=== PATIENT | female | born 1990 | race Caucasian/White ===

== ENCOUNTER 2016-07-08 14:19 | Outpatient (CLI) | payer OTHER ==
[~2016-07-08 14:19] MED LIST: AMBIEN5 MG PO; ANAPROX DS550 M1 PO; ANTIVERT25 MG PO; ATHENOL325 MG PO; COUGH RELI15 MG/5 ML PO; FLEXERIL10 MG PO; IMODIUM MS REL1 EACH PO; KEFLEX500 MG PO; MACROBID100 MG PO; METRONIDAZOLE500 MG PO; MUCINEX D ER T1 EACH PO; NAPROSYN500 MG PO; NIFEDIPINE10 MG PO; PEPCID40 MG PO; PERCOCET 5/31 TABLET PO; PRENATAL PLUS PO; PRENATAL TABLE1 EAC3 PO; PROMETHAZINE HC25 M1 PO; ROBITUSSIN100 MG/5 M PO; SERTRALINE HCL25 MG PO; SPRINTEC1 EACH PO; ZANTAC150 MG PO; ZANTAC300 MG PO; ZOFRAN ODT4 MG PO; ZOFRAN4 MG PO
[2016-07-08 14:37] VITALS: BP 120/59
== END 2016-07-08 15:43 | disposition home or self-care (01) ==
LOC: LDRP-OP 14:19 → 2WEST 14:20 → LDRP-OP 08-18 19:45
DX: O47.1 False labor at or after 37 completed weeks of gestation (principal); O99.89 Other specified diseases and conditions complicating pregnancy, childbirth and the puerperium; Z3A.38 38 weeks gestation of pregnancy
CPT/HCPCS: 59025; G0378

== ENCOUNTER 2016-07-11 07:12 | Inpatient (IN) | payer OTHER ==
[2016-07-11] VITALS (23 sets, daily range): BP systolic 110–168; BP diastolic 51–85
[~2016-07-11] VITALS: Ht 175.3 cm; Wt 114.3 kg
[2016-07-11 09:23] LABS: EOSINOPHIL (%) 0.5 % (0-5); IMMATURE GRANULOCYTE (%) 0.4 % (0.0-0.7); IMMATURE GRANULOCYTE COUNT 0.3 K/uL; LYMPHOCYTE COUNT 1.4 K/uL (1.0-2.8); MCH 28.5 PG (29.0-34.0); MCHC 35.6 G/DL (30.0-36.0); MEAN PLAT.VOLUME 11.4 uM^3 (9.5-12.4); MONOCYTE (%) 7.1 % (3-12); MONOCYTE COUNT 0.6 K/uL (0-0.8); NEUTROPHIL (%) 74.6 % (45-76); NEUTROPHIL COUNT 6.1 K/uL (1.8-6.4); PLATELET COUNT 165 K/uL (156-360); RBC DIS.WIDTH-CV 13.9 % (11.8-14.6); RBC DIS.WIDTH-SD 38.8 % (39-53); RED BLOOD COUNT 4.25 M/uL (3.80-5.20); WHITE BLOOD COUNT 8.2 K/uL (4.1-10.2)
[2016-07-12 05:47] LABS: EOSINOPHIL (%) 0.5 % (0-5); HEMATOCRIT 35.1 % (36.0-46.0); IMMATURE GRANULOCYTE (%) 0.6 % (0.0-0.7); IMMATURE GRANULOCYTE COUNT 0.1 K/uL; LYMPHOCYTE COUNT 1.9 K/uL (1.0-2.8); MCH 27.9 PG (29.0-34.0); MCHC 33.6 G/DL (30.0-36.0); MEAN PLAT.VOLUME 11.9 uM^3 (9.5-12.4); MONOCYTE (%) 7.1 % (3-12); MONOCYTE COUNT 0.6 K/uL (0-0.8); NEUTROPHIL (%) 67.4 % (45-76); NEUTROPHIL COUNT 5.3 K/uL (1.8-6.4); PLATELET COUNT 170 K/uL (156-360); RBC DIS.WIDTH-SD 42.1 % (39-53); RED BLOOD COUNT 4.23 M/uL (3.80-5.20); WHITE BLOOD COUNT 7.9 K/uL (4.1-10.2)
[2016-07-12 08:24] VITALS: BP 129/59
[2016-07-12 16:02] VITALS: BP 128/58
[2016-07-12 22:41] VITALS: BP 120/59
[2016-07-13 07:21] VITALS: BP 129/75
== END 2016-07-13 10:20 | disposition home or self-care (01) | DRG 775 ==
LOC: LDRP-OP 07:12 → 2WEST 07:13 → LDRP-OP 11:41 → 2WEST 17:25 → LDRP-OP 08-18 16:14
PROVIDERS: Advanced Practice Midwife
PROC: 10E0XZZ Delivery of Products of Conception, External Approach (ICD-10-PCS; principal; 2016-07-11)
PROC: 00HU33Z Insertion of Infusion Device into Spinal Canal, Percutaneous Approach (ICD-10-PCS; principal; 2016-07-11)
PROC: 3E033VJ Introduction of Other Hormone into Peripheral Vein, Percutaneous Approach (ICD-10-PCS; principal; 2016-07-11)
PROC: 10907ZC Drainage of Amniotic Fluid, Therapeutic from Products of Conception, Via Natural or Artificial Opening (ICD-10-PCS; principal; 2016-07-11)
PROC: 3E0S3CZ (ICD-10-PCS; principal; 2016-07-11)
DX: O99.214 Obesity complicating childbirth (principal); Z3A.39 39 weeks gestation of pregnancy; Z37.0 Single live birth; F31.9 Bipolar disorder, unspecified; F90.1 Attention-deficit hyperactivity disorder, predominantly hyperactive type; O99.344 Other mental disorders complicating childbirth; E66.9 Obesity, unspecified; Z68.38 Body mass index [BMI] 38.0-38.9, adult; Z87.891 Personal history of nicotine dependence
CPT/HCPCS: 59025; 85025; 87480; 87510; 87660; C1755; G0378; J1200; J2795; J3010; J7120

== ENCOUNTER 2016-09-18 15:31 | Emergency (ER) | payer OTHER ==
[~2016-09-18] VITALS: Ht 165.1 cm; Wt 108.5 kg
[2016-09-18 16:48] LABS: HEMATOCRIT 39.5 % (36.0-46.0); MCH 27.5 PG (29.0-34.0); MCHC 33.2 G/DL (30.0-36.0); MEAN PLAT.VOLUME 9.9 uM^3 (9.5-12.4); PLATELET COUNT 251 K/uL (156-360); RBC DIS.WIDTH-CV 13.2 % (11.8-14.6); RBC DIS.WIDTH-SD 39.7 % (39-53); RED BLOOD COUNT 4.76 M/uL (3.80-5.20); WHITE BLOOD COUNT 7.1 K/uL (4.1-10.2)
[2016-09-18 17:01] LABS: CHLORIDE 109 mEq/L (99-109); POTASSIUM 3.7 mEq/L (3.7-5.4); SODIUM 142 mEq/L (136-147)
[2016-09-18 17:03] LABS: GLUCOSE 86 mg/dL (70-99)
[2016-09-18 17:05] LABS: ANION GAP 8 MEQ/L (2-14); TOTAL BILIRUBIN 0.3 mg/dL (0.0-1.0)
[2016-09-18 17:07] LABS: ALKALINE PHOSPHATASE 60 IU/L (3-129); GFR ESTIMATE (CALCULATED) > 59 mL/min/
[2016-09-18 17:08] LABS: UREA NITROGEN (BUN) 13 mg/dL (9-23)
[2016-09-18 17:20] LABS: QUANTITATIVE HCG < 4.0 MIU/ML
[2016-09-18 18:57] LABS: ADD MIUA? YES; BILIRUBIN NEGATIVE; BLOOD NEGATIVE; COLOR YELLOW ((YELLOW)); GLUCOSE (STRIP) NEGATIVE; KETONES NEGATIVE; LEUKOCYTES SMALL; NITRITE NEGATIVE; PROTEIN (STRIP) 30; SPECIFIC GRAVITY 1.021 (1.000-1.030); UROBILINOGEN 0.2 MG/DL (0.2-1.0)
[2016-09-18 19:14] LABS: BACTERIA NONE SEEN /HPF; EPITHELIAL CELLS 2+ /HPF; MUCUS TRACE /LPF; RED BLOOD CELLS NONE SEEN /HPF (0-5); UCUL ADDED? NO; WHITE BLOOD CELLS NONE SEEN /HPF (0-5)
[2016-09-18] MEDS ORDERED: BENTYL10 MG PO (19:49)
[2016-09-18 19:54] VITALS: BP 156/72
== END 2016-09-18 19:56 | disposition home or self-care (01) ==
LOC: EME 15:31
DX: R10.9 Unspecified abdominal pain (principal); Z87.891 Personal history of nicotine dependence
CPT/HCPCS: 80053; 81003; 84702; 85027; 99281; 99284

== ENCOUNTER 2016-10-12 11:19 | Emergency (ER) | payer OTHER ==
[~2016-10-12] VITALS: Ht 170.2 cm; Wt 109.0 kg
[~2016-10-12 11:19] MED LIST changes: +BENTYL10 MG PO
[2016-10-12 14:12] VITALS: BP 117/71
== END 2016-10-12 14:12 | disposition home or self-care (01) ==
LOC: EME 11:19
DX: Z30.09 Encounter for other general counseling and advice on contraception (principal)
CPT/HCPCS: 99281; 99283

== ENCOUNTER 2016-10-29 14:00 | Emergency (ER) | payer OTHER ==
[~2016-10-29] VITALS: Ht 167.6 cm; Wt 110.1 kg
[2016-10-29 14:24] LABS: HEMATOCRIT 39.3 % (36.0-46.0); MCH 28.2 PG (29.0-34.0); MCHC 34.4 G/DL (30.0-36.0); PLATELET COUNT 203 K/uL (156-360); RBC DIS.WIDTH-CV 12.5 % (11.8-14.6); RBC DIS.WIDTH-SD 37.4 % (39-53); RED BLOOD COUNT 4.79 M/uL (3.80-5.20); WHITE BLOOD COUNT 7.6 K/uL (4.1-10.2)
[2016-10-29 14:37] LABS: CHLORIDE 112 mEq/L (99-109); POTASSIUM 3.8 mEq/L (3.7-5.4); SODIUM 139 mEq/L (136-147)
[2016-10-29 14:39] LABS: GLUCOSE 86 mg/dL (70-99)
[2016-10-29 14:40] LABS: ANION GAP 9 MEQ/L (2-14)
[2016-10-29 14:43] LABS: GFR ESTIMATE (CALCULATED) > 59 mL/min/
[2016-10-29 14:44] LABS: UREA NITROGEN (BUN) 11 mg/dL (9-23)
[2016-10-29 14:52] LABS: QUANTITATIVE HCG 237.7 MIU/ML
[2016-10-29 15:37] LABS: COLOR YELLOW ((YELLOW)); LEUKOCYTES NEGATIVE; NITRITE NEGATIVE
[2016-10-29 15:38] LABS: ADD MIUA? YES; BILIRUBIN NEGATIVE; BLOOD TRACE; GLUCOSE (STRIP) NEGATIVE; KETONES NEGATIVE; PROTEIN (STRIP) NEGATIVE; UROBILINOGEN 0.2 MG/DL (0.2-1.0)
[2016-10-29 16:20] LABS: BACTERIA NONE SEEN /HPF; EPITHELIAL CELLS RARE /HPF; MUCUS NONE SEEN /LPF; RED BLOOD CELLS 0-5 /HPF (0-5); UCUL ADDED? NO; WHITE BLOOD CELLS 0-5 /HPF (0-5)
[2016-10-29 17:09] VITALS: BP 125/65
== END 2016-10-29 17:10 | disposition home or self-care (01) ==
LOC: EME 14:00
PROVIDERS: Nurse Practitioner Family
DX: Z32.01 Encounter for pregnancy test, result positive (principal); R10.30 Lower abdominal pain, unspecified
CPT/HCPCS: 76801; 80048; 81003; 84702; 85027; 99281; 99284

== ENCOUNTER 2016-11-24 10:21 | Emergency (ER) | payer OTHER ==
[~2016-11-24] VITALS: Ht 170.2 cm; Wt 114.6 kg
[2016-11-24] MEDS ORDERED: ZYRTEC10 M2 PO (12:13)
[2016-11-24] MEDS ORDERED: AMOXICILLIN500 M1 PO (12:13)
[2016-11-24 12:20] VITALS: BP 121/58
== END 2016-11-24 12:21 | disposition home or self-care (01) ==
LOC: EME 10:21
PROC: 09C1XZZ Extirpation of Matter from Left External Ear, External Approach (ICD-10-PCS; principal; 2016-11-24)
DX: H66.92 Otitis media, unspecified, left ear (principal); J30.2 Other seasonal allergic rhinitis; H61.22 Impacted cerumen, left ear; Z33.1 Pregnant state, incidental; Z3A.08 8 weeks gestation of pregnancy; Z87.891 Personal history of nicotine dependence
CPT/HCPCS: 99281; 99284

== ENCOUNTER 2016-12-09 12:30 | Emergency (ER) | payer OTHER ==
[~2016-12-09] VITALS: Ht 170.2 cm; Wt 113.9 kg
[~2016-12-09 12:30] MED LIST changes: +AMOXICILLIN500 M1 PO; +ZYRTEC10 M2 PO
[2016-12-09 13:09] LABS: ADD MIUA? YES; BILIRUBIN NEGATIVE; BLOOD NEGATIVE; COLOR YELLOW ((YELLOW)); GLUCOSE (STRIP) NEGATIVE; KETONES NEGATIVE; LEUKOCYTES TRACE; NITRITE NEGATIVE; PROTEIN (STRIP) NEGATIVE; SPECIFIC GRAVITY 1.016 (1.000-1.030); UROBILINOGEN 0.2 MG/DL (0.2-1.0)
[2016-12-09 13:12] LABS: BACTERIA NONE SEEN /HPF; EPITHELIAL CELLS 2+ /HPF; MUCUS TRACE /LPF; RED BLOOD CELLS 0-5 /HPF (0-5); UCUL ADDED? NO; WHITE BLOOD CELLS 0-5 /HPF (0-5)
[2016-12-09 13:32] LABS: MCH 28.3 PG (29.0-34.0); MCHC 34.7 G/DL (30.0-36.0); MCV 81.6 FL (83-99); MEAN PLAT.VOLUME 10.3 uM^3 (9.5-12.4); PLATELET COUNT 139 K/uL (156-360); RBC DIS.WIDTH-CV 12.6 % (11.8-14.6); RBC DIS.WIDTH-SD 37.5 % (39-53); RED BLOOD COUNT 4.41 M/uL (3.80-5.20); WHITE BLOOD COUNT 5.7 K/uL (4.1-10.2)
[2016-12-09 15:32] VITALS: BP 132/73
== END 2016-12-09 15:35 | disposition home or self-care (01) ==
LOC: EME 12:30
DX: O26.891 Other specified pregnancy related conditions, first trimester (principal); R10.9 Unspecified abdominal pain; Z3A.10 10 weeks gestation of pregnancy; W01.0XXA Fall on same level from slipping, tripping and stumbling without subsequent striking against object, initial encounter; F90.9 Attention-deficit hyperactivity disorder, unspecified type; Z87.891 Personal history of nicotine dependence
CPT/HCPCS: 76815; 81003; 84702; 85027; 99281; 99283

== ENCOUNTER 2017-01-22 20:14 | Emergency (ER) | payer OTHER ==
[~2017-01-22] VITALS: Ht 167.6 cm; Wt 112.3 kg
[2017-01-22] MEDS ORDERED: PHENERGAN1.25 MG/ML PO (21:40)
[2017-01-22 22:37] VITALS: BP 118/63
== END 2017-01-22 22:37 | disposition home or self-care (01) ==
LOC: EME 20:14
DX: O99.512 Diseases of the respiratory system complicating pregnancy, second trimester (principal); J06.9 Acute upper respiratory infection, unspecified; O99.342 Other mental disorders complicating pregnancy, second trimester; F90.9 Attention-deficit hyperactivity disorder, unspecified type; Z3A.16 16 weeks gestation of pregnancy; Z87.891 Personal history of nicotine dependence
CPT/HCPCS: 87651 90; 99281; 99284

== ENCOUNTER 2017-01-24 16:27 | Emergency (ER) | payer OTHER ==
[~2017-01-24] VITALS: Ht 170.2 cm; Wt 113.0 kg
[~2017-01-24 16:27] MED LIST changes: +PHENERGAN1.25 MG/ML PO
[2017-01-24 17:34] LABS: HEMATOCRIT 34.7 % (36.0-46.0); MCHC 34.3 G/DL (30.0-36.0); MCV 84.4 FL (83-99); PLATELET COUNT 151 K/uL (156-360); RBC DIS.WIDTH-CV 13.7 % (11.8-14.6); RBC DIS.WIDTH-SD 42.2 % (39-53); RED BLOOD COUNT 4.11 M/uL (3.80-5.20)
[2017-01-24 17:44] LABS: CHLORIDE 108 mEq/L (99-109); POTASSIUM 3.6 mEq/L (3.7-5.4); SODIUM 137 mEq/L (136-147)
[2017-01-24 17:46] LABS: GLUCOSE 77 mg/dL (70-99)
[2017-01-24 17:47] LABS: ANION GAP 10 MEQ/L (2-14)
[2017-01-24 17:48] LABS: TOTAL BILIRUBIN 0.4 mg/dL (0.0-1.0)
[2017-01-24 17:50] LABS: ALKALINE PHOSPHATASE 48 IU/L (3-129); GFR ESTIMATE (CALCULATED) > 59 mL/min/
[2017-01-24 17:51] LABS: UREA NITROGEN (BUN) 6 mg/dL (9-23)
[2017-01-24 18:11] LABS: ADD MIUA? YES; BILIRUBIN NEGATIVE; BLOOD NEGATIVE; COLOR YELLOW ((YELLOW)); GLUCOSE (STRIP) NEGATIVE; KETONES 20; LEUKOCYTES NEGATIVE; NITRITE NEGATIVE; PROTEIN (STRIP) 30; SPECIFIC GRAVITY 1.019 (1.000-1.030); UROBILINOGEN 0.2 MG/DL (0.2-1.0)
[2017-01-24 18:17] LABS: D-DIMER ELISA < 150.00 ng/mLDDU (<230)
[2017-01-24 18:25] LABS: BACTERIA RARE /HPF; CALCIUM OXALATE CRYSTALS 2+ /HPF; EPITHELIAL CELLS 1+ /HPF; MUCUS 4+ /LPF; RED BLOOD CELLS 0-5 /HPF (0-5); UCUL ADDED? NO; WHITE BLOOD CELLS 0-5 /HPF (0-5)
[2017-01-24 18:25] LABS: TROP-I INTERPRETATION NEGATIVE; TROPONIN-I < 0.01 ng/mL (0.0-0.30)
[2017-01-24 18:32] LABS: QUANTITATIVE HCG 14347.6 MIU/ML
[2017-01-24 21:31] VITALS: BP 130/58
[2017-01-24] MEDS ORDERED: AUGMENTIN875 MG PO (21:38)
== END 2017-01-24 21:57 | disposition home or self-care (01) ==
LOC: EME 16:27
PROVIDERS: Physician Assistant
DX: O26.892 Other specified pregnancy related conditions, second trimester (principal); R55 Syncope and collapse; O99.89 Other specified diseases and conditions complicating pregnancy, childbirth and the puerperium; H73.893 Other specified disorders of tympanic membrane, bilateral; Z3A.16 16 weeks gestation of pregnancy; Z87.891 Personal history of nicotine dependence
CPT/HCPCS: 71020; 80053; 81003; 84484; 84702; 85027; 85379; 93005; 93970; 99281; 99284

== ENCOUNTER 2017-02-18 15:26 | Outpatient (CLI) | payer OTHER ==
[~2017-02-18] VITALS: Ht 170.2 cm; Wt 111.8 kg
[~2017-02-18 15:26] MED LIST changes: +AUGMENTIN875 MG PO
[2017-02-18 16:07] VITALS: BP 115/56
== END 2017-02-18 16:55 | disposition home or self-care (01) ==
LOC: LDRP-OP 15:26 → 2WEST 15:27
DX: O9A.212 Injury, poisoning and certain other consequences of external causes complicating pregnancy, second trimester (principal); R10.9 Unspecified abdominal pain; Z3A.20 20 weeks gestation of pregnancy
CPT/HCPCS: 59025; G0378

== ENCOUNTER 2017-04-05 13:00 | Outpatient (CLI) | payer OTHER ==
[2017-04-05 13:19] VITALS: BP 125/63
[2017-04-05 14:36] LABS: ADD MIUA? YES; BILIRUBIN NEGATIVE; BLOOD NEGATIVE; COLOR AMBER ((YELLOW)); GLUCOSE (STRIP) NEGATIVE; KETONES NEGATIVE; LEUKOCYTES SMALL; NITRITE NEGATIVE; PROTEIN (STRIP) NEGATIVE
[2017-04-05 15:07] LABS: BACTERIA 2+ /HPF; CASTS NONE SEEN /LPF; CRYSTALS PRESENT; EPITHELIAL CELLS 4+ /HPF; MUCUS 3+ /LPF; RED BLOOD CELLS NONE SEEN /HPF (0-5); UCUL ADDED? YES; WHITE BLOOD CELLS 0-5 /HPF (0-5)
[2017-04-05 15:08] LABS: CALCIUM OXALATE CRYSTALS 2+ /HPF
[2017-04-05 18:49] LABS: AMPHETAMINE NEGATIVE (500 ng/mL); BARBITURATES NEGATIVE (200 ng/mL); BENZODIAZEPINES NEGATIVE (150 ng/mL); COCAINE NEGATIVE (150 ng/mL); INTERNAL CONTROLS VALID? YES; METHADONE NEGATIVE (200 ng/mL); METHAMPHETAMINE NEGATIVE (500 ng/mL); OPIATES (MORPHINE) NEGATIVE (100 ng/mL); OXYCODONE NEGATIVE (100 ng/mL); PHENCYCLIDINE NEGATIVE (25 ng/mL); PROPOXYPHENE NEGATIVE (300 ng/mL); THC CANNABINOIDS NEGATIVE (50 ng/mL); TRICYCLIC ANTIDEPRESSANTS NEGATIVE (300 ng/mL)
== END 2017-04-05 17:20 | disposition home or self-care (01) ==
LOC: LDRP-OP 13:00 → 2WEST 13:04 → LDRP-OP 08-06 17:40
PROVIDERS: Midwife
DX: O26.892 Other specified pregnancy related conditions, second trimester (principal); R10.9 Unspecified abdominal pain; O99.342 Other mental disorders complicating pregnancy, second trimester; F31.9 Bipolar disorder, unspecified; F90.9 Attention-deficit hyperactivity disorder, unspecified type; Z3A.26 26 weeks gestation of pregnancy; O99.212 Obesity complicating pregnancy, second trimester; E66.9 Obesity, unspecified; Z68.41 Body mass index [BMI] 40.0-44.9, adult; O98.512 Other viral diseases complicating pregnancy, second trimester; B00.9 Herpesviral infection, unspecified
CPT/HCPCS: 59025; 76805; 81003; 82731; 87086; 87491; 87591; G0378

== ENCOUNTER 2017-04-20 15:45 | Outpatient (CLI) | payer OTHER ==
[~2017-04-20] VITALS: Ht 167.6 cm; Wt 111.1 kg
[2017-04-20 16:08] VITALS: BP 130/66
== END 2017-04-20 18:00 | disposition home or self-care (01) ==
LOC: LDRP-OP 15:45 → 2WEST 15:46 → LDRP-OP 08-06 21:53
DX: O26.893 Other specified pregnancy related conditions, third trimester (principal); Z3A.29 29 weeks gestation of pregnancy; R10.9 Unspecified abdominal pain
CPT/HCPCS: 59025; 82731; G0378

== ENCOUNTER 2017-05-13 12:44 | Emergency (ER) | payer OTHER ==
[~2017-05-13] VITALS: Ht 170.2 cm; Wt 113.8 kg
[2017-05-13 14:11] VITALS: BP 125/70
== END 2017-05-13 14:11 | disposition home or self-care (01) ==
LOC: EME 12:44
DX: J02.9 Acute pharyngitis, unspecified (principal); R13.10 Dysphagia, unspecified
CPT/HCPCS: 87651 90; 99281; 99284

== ENCOUNTER 2017-05-14 17:43 | Outpatient (CLI) | payer OTHER ==
[2017-05-14 18:03] VITALS: BP 137/64
[2017-05-14 21:02] LABS: CANDIDA DNA PROBE NEGATIVE; GARDNERELLA DNA PROBE NEGATIVE; INTERNAL CONTROL VALID? YES
== END 2017-05-14 19:40 | disposition home or self-care (01) ==
LOC: LDRP-OP → 2WEST 17:45 → LDRP-OP 08-06 19:11
PROVIDERS: Midwife
DX: O26.893 Other specified pregnancy related conditions, third trimester (principal); R10.9 Unspecified abdominal pain; O99.343 Other mental disorders complicating pregnancy, third trimester; F90.9 Attention-deficit hyperactivity disorder, unspecified type; F31.9 Bipolar disorder, unspecified; Z86.19 Personal history of other infectious and parasitic diseases; Z3A.32 32 weeks gestation of pregnancy
CPT/HCPCS: 59025; 87480; 87510; 87660; G0378

== ENCOUNTER 2017-05-20 17:01 | Outpatient (CLI) | payer OTHER ==
[2017-05-20 17:15] VITALS: BP 133/60
== END 2017-05-20 20:45 | disposition home or self-care (01) ==
LOC: LDRP-OP 17:01 → 2WEST 17:03 → LDRP-OP 08-06 21:41
DX: Z03.79 Encounter for other suspected maternal and fetal conditions ruled out (principal); W10.9XXA Fall (on) (from) unspecified stairs and steps, initial encounter; O99.343 Other mental disorders complicating pregnancy, third trimester; F32.9 Major depressive disorder, single episode, unspecified; F90.9 Attention-deficit hyperactivity disorder, unspecified type; Z68.41 Body mass index [BMI] 40.0-44.9, adult; Z3A.33 33 weeks gestation of pregnancy
CPT/HCPCS: 59025; 76818; G0378

== ENCOUNTER 2017-05-27 10:39 | Outpatient (CLI) | payer OTHER ==
[2017-05-27 10:50] VITALS: BP 120/59
== END 2017-05-27 12:22 | disposition home or self-care (01) ==
LOC: LDRP-OP 10:39 → 2WEST 10:40 → LDRP-OP 08-06 20:52
DX: O26.893 Other specified pregnancy related conditions, third trimester (principal); R11.0 Nausea; R19.7 Diarrhea, unspecified; O99.213 Obesity complicating pregnancy, third trimester; E66.9 Obesity, unspecified; Z68.41 Body mass index [BMI] 40.0-44.9, adult; Z3A.34 34 weeks gestation of pregnancy; O99.343 Other mental disorders complicating pregnancy, third trimester; F90.9 Attention-deficit hyperactivity disorder, unspecified type; F31.9 Bipolar disorder, unspecified; O98.313 Other infections with a predominantly sexual mode of transmission complicating pregnancy, third trimester; A60.00 Herpesviral infection of urogenital system, unspecified
CPT/HCPCS: 59025; G0378

== ENCOUNTER 2017-05-29 16:43 | Outpatient (CLI) | payer OTHER ==
[2017-05-29 16:59] VITALS: BP 122/56
== END 2017-05-29 18:27 | disposition home or self-care (01) ==
LOC: LDRP-OP 16:43 → 2WEST 16:46 → LDRP-OP 08-06 13:50
DX: O9A.213 Injury, poisoning and certain other consequences of external causes complicating pregnancy, third trimester (principal); S39.91XA Unspecified injury of abdomen, initial encounter; Z3A.34 34 weeks gestation of pregnancy; W10.9XXA Fall (on) (from) unspecified stairs and steps, initial encounter
CPT/HCPCS: 59025; G0378

== ENCOUNTER 2017-06-03 16:36 | Outpatient (CLI) | payer OTHER ==
[2017-06-03 16:55] VITALS: BP 117/56
== END 2017-06-03 18:52 | disposition home or self-care (01) ==
LOC: LDRP-OP 16:36 → 2WEST 16:37 → LDRP-OP 08-06 18:40
DX: O26.893 Other specified pregnancy related conditions, third trimester (principal); R19.7 Diarrhea, unspecified; Z3A.35 35 weeks gestation of pregnancy
CPT/HCPCS: G0378

== ENCOUNTER 2017-06-04 18:08 | Outpatient (CLI) | payer OTHER ==
[2017-06-04 18:28] VITALS: BP 121/57
[2017-06-04 20:52] LABS: ADD MIUA? YES; BILIRUBIN NEGATIVE; BLOOD NEGATIVE; COLOR YELLOW ((YELLOW)); GLUCOSE (STRIP) NEGATIVE; KETONES NEGATIVE; LEUKOCYTES NEGATIVE; NITRITE NEGATIVE; PROTEIN (STRIP) NEGATIVE; SPECIFIC GRAVITY 1.018 (1.000-1.030); UROBILINOGEN 0.2 MG/DL (0.2-1.0)
[2017-06-04 20:58] LABS: BACTERIA RARE /HPF; EPITHELIAL CELLS RARE /HPF; HYALINE CASTS 0-5 /LPF; MUCUS 3+ /LPF; RED BLOOD CELLS 0-5 /HPF (0-5); UCUL ADDED? NO; WHITE BLOOD CELLS 0-5 /HPF (0-5)
[2017-06-04 21:45] VITALS: BP 122/56
[2017-06-04 22:39] LABS: CANDIDA DNA PROBE NEGATIVE; GARDNERELLA DNA PROBE NEGATIVE; INTERNAL CONTROL VALID? YES
[2017-06-06 12:31] LABS: CHLAMYDIA TRACHOMATIS NEGATIVE; NEISSERIA GONORRHOEAE NEGATIVE
== END 2017-06-04 22:10 | disposition home or self-care (01) ==
LOC: LDRP-OP 18:08 → 2WEST 18:10
PROVIDERS: Obstetrics & Gynecology
DX: O9A.213 Injury, poisoning and certain other consequences of external causes complicating pregnancy, third trimester (principal); R10.9 Unspecified abdominal pain; Z3A.35 35 weeks gestation of pregnancy; W18.30XA Fall on same level, unspecified, initial encounter
CPT/HCPCS: 59025; 76805; 76818; 81003; 82731; 87081; 87480; 87491; 87510; 87591; 87660; G0378

== ENCOUNTER 2017-06-05 21:05 | Outpatient (CLI) | payer OTHER ==
[2017-06-05 21:33] VITALS: BP 111/53
[2017-06-05 23:06] LABS: ADD MIUA? YES; BILIRUBIN NEGATIVE; BLOOD NEGATIVE; GLUCOSE (STRIP) 50; KETONES NEGATIVE; LEUKOCYTES SMALL; NITRITE NEGATIVE; PROTEIN (STRIP) 30; SPECIFIC GRAVITY 1.026 (1.000-1.030); UROBILINOGEN 0.2 MG/DL (0.2-1.0)
[2017-06-05 23:07] LABS: COLOR DK YELLOW ((YELLOW))
[2017-06-05 23:16] LABS: AMPHETAMINE NEGATIVE (500 ng/mL); BARBITURATES NEGATIVE (200 ng/mL); BENZODIAZEPINES NEGATIVE (150 ng/mL); COCAINE NEGATIVE (150 ng/mL); INTERNAL CONTROLS VALID? YES; METHADONE NEGATIVE (200 ng/mL); METHAMPHETAMINE NEGATIVE (500 ng/mL); OPIATES (MORPHINE) NEGATIVE (100 ng/mL); OXYCODONE NEGATIVE (100 ng/mL); PHENCYCLIDINE NEGATIVE (25 ng/mL); PROPOXYPHENE NEGATIVE (300 ng/mL); THC CANNABINOIDS NEGATIVE (50 ng/mL); TRICYCLIC ANTIDEPRESSANTS NEGATIVE (300 ng/mL)
[2017-06-05 23:49] LABS: EPITHELIAL CELLS 2+ /HPF; MUCUS 3+ /LPF; RED BLOOD CELLS NONE SEEN /HPF (0-5)
[2017-06-05 23:50] LABS: BACTERIA 3+ /HPF
== END 2017-06-06 03:45 | disposition home or self-care (01) ==
LOC: LDRP-OP 21:05 → 2WEST 21:06 → LDRP-OP 08-06 22:33
PROVIDERS: Advanced Practice Midwife
DX: O26.893 Other specified pregnancy related conditions, third trimester (principal); O9A.213 Injury, poisoning and certain other consequences of external causes complicating pregnancy, third trimester; Z3A.35 35 weeks gestation of pregnancy; R10.9 Unspecified abdominal pain; W19.XXXA Unspecified fall, initial encounter
CPT/HCPCS: 59025; 81003; G0378; J7120

== ENCOUNTER 2017-08-14 19:39 | Emergency (ER) | payer OTHER ==
[~2017-08-14] VITALS: Ht 170.2 cm; Wt 108.5 kg
[2017-08-14 20:41] VITALS: BP 139/75
== END 2017-08-14 20:51 | disposition home or self-care (01) ==
LOC: EME 19:39
DX: H65.90 Unspecified nonsuppurative otitis media, unspecified ear (principal)
CPT/HCPCS: 99281; 99284

== ENCOUNTER 2017-09-10 18:55 | Emergency (ER) | payer OTHER ==
[~2017-09-10] VITALS: Ht 167.6 cm; Wt 111.6 kg
[2017-09-10] MEDS ORDERED: CIPRODEX OTIC7.5 ML LEFT EAR (19:27)
[2017-09-10 20:15] VITALS: BP 129/66
== END 2017-09-10 20:16 | disposition home or self-care (01) ==
LOC: EME 18:55
DX: H60.92 Unspecified otitis externa, left ear (principal)
CPT/HCPCS: 99281; 99284

== ENCOUNTER 2017-09-26 16:08 | Emergency (ER) | payer OTHER ==
[~2017-09-26] VITALS: Ht 170.2 cm; Wt 111.8 kg
[~2017-09-26 16:08] MED LIST changes: +CIPRODEX OTIC7.5 ML LEFT EAR
[2017-09-26 17:16] LABS: APPEARANCE SL.HAZY ((CLEAR)); BILIRUBIN NEGATIVE; BLOOD MODERATE; COLOR YELLOW ((YELLOW)); GLUCOSE (STRIP) NEGATIVE; KETONES NEGATIVE; LEUKOCYTES TRACE; NITRITE NEGATIVE; PROTEIN (STRIP) NEGATIVE; SPECIFIC GRAVITY 1.021 (1.000-1.030); UROBILINOGEN 0.2 MG/DL (0.2-1.0)
[2017-09-26 17:47] LABS: HEMATOCRIT 42.3 % (36.0-46.0); HEMOGLOBIN 14.7 G/DL (11.9-15.5); MCH 29.1 PG (29.0-34.0); MCHC 34.8 G/DL (30.0-36.0); MCV 83.8 FL (83-99); PLATELET COUNT 202 K/uL (156-360); RBC DIS.WIDTH-CV 12.9 % (11.8-14.6); RBC DIS.WIDTH-SD 39.2 % (39-53); RED BLOOD COUNT 5.05 M/uL (3.80-5.20); WHITE BLOOD COUNT 7.9 K/uL (4.1-10.2)
[2017-09-26 17:49] LABS: BACTERIA RARE /HPF; EPITHELIAL CELLS 1+ /HPF; MUCUS TRACE /LPF; UCUL ADDED? NO; WHITE BLOOD CELLS 0-5 /HPF (0-5)
[2017-09-26 18:00] LABS: ALBUMIN 4.5 g/dL (3.2-4.8); CHLORIDE 106 mEq/L (99-109); POTASSIUM 3.9 mEq/L (3.7-5.4); SODIUM 141 mEq/L (136-147)
[2017-09-26 18:02] LABS: GLUCOSE 89 mg/dL (70-99); TOTAL PROTEIN 7.6 g/dL (6.4-8.3)
[2017-09-26 18:04] LABS: TOTAL BILIRUBIN 0.5 mg/dL (0.0-1.0)
[2017-09-26 18:06] LABS: ALKALINE PHOSPHATASE 68 IU/L (3-129); CREATININE 0.8 mg/dL (0.6-1.3); GFR ESTIMATE (CALCULATED) > 59 mL/min/
[2017-09-26 18:07] LABS: UREA NITROGEN (BUN) 15 mg/dL (9-23)
[2017-09-26 18:08] LABS: AST (GOT) 17 IU/L (2-34)
[2017-09-26 18:09] LABS: ALT (GPT) 18 IU/L (3-49)
[2017-09-26 18:15] LABS: QUANTITATIVE HCG < 4.0 MIU/ML
[2017-09-26] MEDS ORDERED: ZOFRAN ODT8 MG PO (19:07)
[2017-09-26] MEDS ORDERED: BENTYL20 MG PO (19:07)
[2017-09-26 19:50] VITALS: BP 150/86
== END 2017-09-26 19:51 | disposition home or self-care (01) ==
LOC: EME 16:08
DX: R10.9 Unspecified abdominal pain (principal); R11.2 Nausea with vomiting, unspecified; R03.0 Elevated blood-pressure reading, without diagnosis of hypertension
CPT/HCPCS: 80053; 81003; 84702; 85027; 99281; 99284

== ENCOUNTER 2017-09-29 16:07 | Emergency (ER) | payer OTHER ==
[~2017-09-29] VITALS: Ht 165.1 cm; Wt 111.3 kg
[~2017-09-29 16:07] MED LIST changes: +BENTYL20 MG PO; +ZOFRAN ODT8 MG PO
[2017-09-29 16:52] LABS: APPEARANCE CLEAR ((CLEAR)); BILIRUBIN NEGATIVE; BLOOD MODERATE; COLOR YELLOW ((YELLOW)); GLUCOSE (STRIP) NEGATIVE; KETONES NEGATIVE; LEUKOCYTES SMALL; NITRITE NEGATIVE; PROTEIN (STRIP) NEGATIVE; SPECIFIC GRAVITY 1.023 (1.000-1.030); UROBILINOGEN 0.2 MG/DL (0.2-1.0)
[2017-09-29 16:54] LABS: HEMATOCRIT 41.8 % (36.0-46.0); MCH 29.5 PG (29.0-34.0); MCHC 35.9 G/DL (30.0-36.0); MCV 82.3 FL (83-99); PLATELET COUNT 222 K/uL (156-360); RBC DIS.WIDTH-CV 12.5 % (11.8-14.6); RBC DIS.WIDTH-SD 37.6 % (39-53); RED BLOOD COUNT 5.08 M/uL (3.80-5.20); WHITE BLOOD COUNT 7.8 K/uL (4.1-10.2)
[2017-09-29 16:56] LABS: BACTERIA RARE /HPF; EPITHELIAL CELLS 1+ /HPF; MUCUS TRACE /LPF; RED BLOOD CELLS 0-5 /HPF (0-5); UCUL ADDED? NO; WHITE BLOOD CELLS 0-5 /HPF (0-5)
[2017-09-29 17:02] LABS: ALBUMIN 4.5 g/dL (3.2-4.8)
[2017-09-29 17:03] LABS: CHLORIDE 107 mEq/L (99-109); POTASSIUM 3.9 mEq/L (3.7-5.4); SODIUM 140 mEq/L (136-147)
[2017-09-29 17:05] LABS: GLUCOSE 84 mg/dL (70-99); TOTAL PROTEIN 7.7 g/dL (6.4-8.3)
[2017-09-29 17:07] LABS: TOTAL BILIRUBIN 0.5 mg/dL (0.0-1.0)
[2017-09-29 17:08] LABS: ALKALINE PHOSPHATASE 68 IU/L (3-129)
[2017-09-29 17:09] LABS: CREATININE 0.7 mg/dL (0.6-1.3); GFR ESTIMATE (CALCULATED) > 59 mL/min/
[2017-09-29 17:10] LABS: AST (GOT) 15 IU/L (2-34); UREA NITROGEN (BUN) 17 mg/dL (9-23)
[2017-09-29 17:12] LABS: ALT (GPT) 18 IU/L (3-49)
[2017-09-29 17:17] LABS: QUANTITATIVE HCG < 4.0 MIU/ML
[2017-09-29] MEDS ORDERED: MOTRIN600 MG PO (19:08)
[2017-09-29 19:34] VITALS: BP 117/61
[2017-10-01 10:35] LABS: SOURCE SWAB
== END 2017-09-29 19:38 | disposition home or self-care (01) ==
LOC: EME 16:07
PROVIDERS: Physician Assistant
DX: N83.201 Unspecified ovarian cyst, right side (principal); F90.9 Attention-deficit hyperactivity disorder, unspecified type
CPT/HCPCS: 76856; 80053; 81003; 84702; 85027; 87210; 87491; 87591; 99281; 99285

== ENCOUNTER 2017-10-09 14:49 | Emergency (ER) | payer OTHER ==
[~2017-10-09] VITALS: Ht 170.2 cm; Wt 112.9 kg
[~2017-10-09 14:49] MED LIST changes: +MOTRIN600 MG PO
[2017-10-09 16:11] LABS: HEMATOCRIT 38.9 % (36.0-46.0); HEMOGLOBIN 13.5 G/DL (11.9-15.5); MCH 28.8 PG (29.0-34.0); MCHC 34.7 G/DL (30.0-36.0); MCV 83.1 FL (83-99); PLATELET COUNT 209 K/uL (156-360); RBC DIS.WIDTH-CV 12.6 % (11.8-14.6); RBC DIS.WIDTH-SD 37.9 % (39-53); RED BLOOD COUNT 4.68 M/uL (3.80-5.20)
[2017-10-09 16:23] LABS: ALBUMIN 4.3 g/dL (3.2-4.8); CHLORIDE 112 mEq/L (99-109)
[2017-10-09 16:24] LABS: POTASSIUM 3.8 mEq/L (3.7-5.4); SODIUM 144 mEq/L (136-147)
[2017-10-09 16:26] LABS: GLUCOSE 104 mg/dL (70-99); TOTAL PROTEIN 7.1 g/dL (6.4-8.3)
[2017-10-09 16:28] LABS: TOTAL BILIRUBIN 0.2 mg/dL (0.0-1.0)
[2017-10-09 16:29] LABS: ALKALINE PHOSPHATASE 66 IU/L (3-129); CREATININE 0.8 mg/dL (0.6-1.3); GFR ESTIMATE (CALCULATED) > 59 mL/min/
[2017-10-09 16:31] LABS: AST (GOT) 15 IU/L (2-34); UREA NITROGEN (BUN) 19 mg/dL (9-23)
[2017-10-09 16:32] LABS: ALT (GPT) 22 IU/L (3-49)
[2017-10-09 16:38] LABS: QUANTITATIVE HCG < 4.0 MIU/ML
[2017-10-09 17:06] LABS: APPEARANCE SL.HAZY ((CLEAR)); BILIRUBIN NEGATIVE; BLOOD LARGE; COLOR YELLOW ((YELLOW)); GLUCOSE (STRIP) NEGATIVE; KETONES NEGATIVE; LEUKOCYTES NEGATIVE; NITRITE NEGATIVE; PROTEIN (STRIP) NEGATIVE; SPECIFIC GRAVITY 1.026 (1.000-1.030); UROBILINOGEN 0.2 MG/DL (0.2-1.0)
[2017-10-09 17:17] LABS: BACTERIA RARE /HPF; EPITHELIAL CELLS 1+ /HPF; MUCUS TRACE /LPF; RED BLOOD CELLS 0-5 /HPF (0-5); UCUL ADDED? NO; WHITE BLOOD CELLS 0-5 /HPF (0-5)
[2017-10-09 18:51] VITALS: BP 131/68
== END 2017-10-09 18:53 | disposition home or self-care (01) ==
LOC: EME 14:49
DX: N92.1 Excessive and frequent menstruation with irregular cycle (principal); F31.9 Bipolar disorder, unspecified; F90.9 Attention-deficit hyperactivity disorder, unspecified type
CPT/HCPCS: 80053; 81003; 84702; 85027; 99281; 99283

== ENCOUNTER 2017-10-15 20:56 | Emergency (ER) | payer OTHER ==
[~2017-10-15] VITALS: Ht 170.2 cm; Wt 115.0 kg
[2017-10-15 22:08] LABS: HEMOGLOBIN 12.8 G/DL (11.9-15.5); MCH 28.8 PG (29.0-34.0); MCHC 34.6 G/DL (30.0-36.0); MCV 83.3 FL (83-99); PLATELET COUNT 172 K/uL (156-360); RBC DIS.WIDTH-CV 12.4 % (11.8-14.6); RBC DIS.WIDTH-SD 37.5 % (39-53); RED BLOOD COUNT 4.44 M/uL (3.80-5.20); WHITE BLOOD COUNT 5.9 K/uL (4.1-10.2)
[2017-10-15 22:31] LABS: ALBUMIN 4.2 g/dL (3.2-4.8); CHLORIDE 111 mEq/L (99-109); POTASSIUM 3.9 mEq/L (3.7-5.4); SODIUM 144 mEq/L (136-147)
[2017-10-15 22:34] LABS: GLUCOSE 105 mg/dL (70-99); TOTAL PROTEIN 6.7 g/dL (6.4-8.3)
[2017-10-15 22:37] LABS: ALKALINE PHOSPHATASE 60 IU/L (3-129); CREATININE 0.7 mg/dL (0.6-1.3); GFR ESTIMATE (CALCULATED) > 59 mL/min/; TOTAL BILIRUBIN 0.3 mg/dL (0.0-1.0)
[2017-10-15 22:38] LABS: UREA NITROGEN (BUN) 13 mg/dL (9-23)
[2017-10-15 22:39] LABS: AST (GOT) 14 IU/L (2-34)
[2017-10-15 22:40] LABS: ALT (GPT) 19 IU/L (3-49)
[2017-10-15 22:48] LABS: QUANTITATIVE HCG < 4.0 MIU/ML
[2017-10-15 23:01] LABS: TROP-I INTERPRETATION NEGATIVE; TROPONIN-I < 0.01 ng/mL (0.0-0.30)
[2017-10-15 23:38] VITALS: BP 127/80
== END 2017-10-15 23:38 | disposition home or self-care (01) ==
LOC: EME 20:56
PROVIDERS: Nurse Practitioner Family
DX: R42 Dizziness and giddiness (principal); R11.0 Nausea; F31.9 Bipolar disorder, unspecified; F90.9 Attention-deficit hyperactivity disorder, unspecified type
CPT/HCPCS: 80053; 81003; 84484; 84702; 85027; 93005; 99281; 99283

== ENCOUNTER 2017-10-30 13:20 | Emergency (ER) | payer OTHER ==
[~2017-10-30] VITALS: Ht 167.6 cm; Wt 111.9 kg
[2017-10-30 13:49] LABS: HEMATOCRIT 40.4 % (36.0-46.0); HEMOGLOBIN 14.4 G/DL (11.9-15.5); MCH 29.4 PG (29.0-34.0); MCHC 35.6 G/DL (30.0-36.0); MCV 82.4 FL (83-99); PLATELET COUNT 205 K/uL (156-360); RBC DIS.WIDTH-CV 12.2 % (11.8-14.6); RBC DIS.WIDTH-SD 36.7 % (39-53); WHITE BLOOD COUNT 8.3 K/uL (4.1-10.2)
[2017-10-30 13:59] LABS: ALBUMIN 4.5 g/dL (3.2-4.8); CHLORIDE 108 mEq/L (99-109); SODIUM 140 mEq/L (136-147)
[2017-10-30 14:02] LABS: GLUCOSE 135 mg/dL (70-99); TOTAL PROTEIN 7.5 g/dL (6.4-8.3)
[2017-10-30 14:04] LABS: TOTAL BILIRUBIN 0.4 mg/dL (0.0-1.0)
[2017-10-30 14:05] LABS: ALKALINE PHOSPHATASE 65 IU/L (3-129); CREATININE 0.8 mg/dL (0.6-1.3); GFR ESTIMATE (CALCULATED) > 59 mL/min/
[2017-10-30 14:06] LABS: UREA NITROGEN (BUN) 16 mg/dL (9-23)
[2017-10-30 14:07] LABS: AST (GOT) 15 IU/L (2-34)
[2017-10-30 14:08] LABS: ALT (GPT) 17 IU/L (3-49)
[2017-10-30 14:16] LABS: QUANTITATIVE HCG < 4.0 MIU/ML
[2017-10-30 15:26] LABS: APPEARANCE CLEAR ((CLEAR)); BILIRUBIN NEGATIVE; BLOOD SMALL; COLOR YELLOW ((YELLOW)); GLUCOSE (STRIP) NEGATIVE; KETONES NEGATIVE; LEUKOCYTES NEGATIVE; NITRITE NEGATIVE; PROTEIN (STRIP) NEGATIVE; SPECIFIC GRAVITY 1.023 (1.000-1.030); UROBILINOGEN 0.2 MG/DL (0.2-1.0)
[2017-10-30 15:47] LABS: BACTERIA RARE /HPF; EPITHELIAL CELLS RARE /HPF; MUCUS TRACE /LPF; RED BLOOD CELLS 0-5 /HPF (0-5); UCUL ADDED? NO; WHITE BLOOD CELLS 0-5 /HPF (0-5)
[2017-10-30] MEDS ORDERED: ZOFRAN ODT8 MG PO (16:25)
[2017-10-30] MEDS ORDERED: LOPERAMIDE2 MG PO (16:25)
[2017-10-30 16:36] VITALS: BP 120/53
== END 2017-10-30 17:34 | disposition home or self-care (01) ==
LOC: EME 13:20
DX: R11.2 Nausea with vomiting, unspecified (principal); R19.7 Diarrhea, unspecified; R10.9 Unspecified abdominal pain; R42 Dizziness and giddiness; E86.0 Dehydration; F31.9 Bipolar disorder, unspecified; F90.9 Attention-deficit hyperactivity disorder, unspecified type
CPT/HCPCS: 80053; 81003; 84702; 85027; 99281; 99284

== ENCOUNTER 2017-11-20 12:33 | Emergency (ER) | payer OTHER ==
[~2017-11-20] VITALS: Ht 170.2 cm; Wt 113.6 kg
[~2017-11-20 12:33] MED LIST changes: +LOPERAMIDE2 MG PO
[2017-11-20] MEDS ORDERED: ANTI-ITCH28 G1 TP (13:07)
[2017-11-20 13:19] VITALS: BP 138/91
== END 2017-11-20 13:20 | disposition home or self-care (01) ==
LOC: EME 12:33
DX: L25.9 Unspecified contact dermatitis, unspecified cause (principal); S80.861A Insect bite (nonvenomous), right lower leg, initial encounter; W57.XXXA Bitten or stung by nonvenomous insect and other nonvenomous arthropods, initial encounter
CPT/HCPCS: 99281; 99283

== ENCOUNTER 2017-12-15 14:17 | Emergency (ER) | payer OTHER ==
[~2017-12-15] VITALS: Ht 165.1 cm; Wt 113.6 kg
[~2017-12-15 14:17] MED LIST changes: +ANTI-ITCH28 G1 TP
[2017-12-15 15:12] LABS: HEMATOCRIT 38.6 % (36.0-46.0); HEMOGLOBIN 13.6 G/DL (11.9-15.5); MCH 28.9 PG (29.0-34.0); MCHC 35.2 G/DL (30.0-36.0); MCV 82.1 FL (83-99); PLATELET COUNT 196 K/uL (156-360); RBC DIS.WIDTH-CV 12.4 % (11.8-14.6); RBC DIS.WIDTH-SD 37.3 % (39-53); WHITE BLOOD COUNT 8.5 K/uL (4.1-10.2)
[2017-12-15 15:22] LABS: ALBUMIN 4.3 g/dL (3.2-4.8); CHLORIDE 107 mEq/L (99-109); POTASSIUM 4.2 mEq/L (3.7-5.4); SODIUM 141 mEq/L (136-147)
[2017-12-15 15:24] LABS: GLUCOSE 89 mg/dL (70-99)
[2017-12-15 15:25] LABS: TOTAL PROTEIN 7.4 g/dL (6.4-8.3)
[2017-12-15 15:26] LABS: TOTAL BILIRUBIN 0.3 mg/dL (0.0-1.0)
[2017-12-15 15:28] LABS: ALKALINE PHOSPHATASE 63 IU/L (3-129); CREATININE 0.8 mg/dL (0.6-1.3); GFR ESTIMATE (CALCULATED) > 59 mL/min/
[2017-12-15 15:29] LABS: UREA NITROGEN (BUN) 12 mg/dL (9-23)
[2017-12-15 15:30] LABS: AST (GOT) 15 IU/L (2-34)
[2017-12-15 15:31] LABS: ALT (GPT) 19 IU/L (3-49)
[2017-12-15 15:37] LABS: QUANTITATIVE HCG < 4.0 MIU/ML
[2017-12-15] MEDS ORDERED: MOTRIN800 MG PO (15:48)
[2017-12-15 17:35] VITALS: BP 167/86
== END 2017-12-15 17:36 | disposition home or self-care (01) ==
LOC: EXP 14:17 → EME 14:17 → EXP 17:36
PROVIDERS: Nurse Practitioner Family
DX: N93.9 Abnormal uterine and vaginal bleeding, unspecified (principal); F90.9 Attention-deficit hyperactivity disorder, unspecified type; F31.9 Bipolar disorder, unspecified
CPT/HCPCS: 80053; 84702; 85027; 99281; 99283

== ENCOUNTER 2018-01-06 12:17 | Emergency (ER) | payer OTHER ==
[~2018-01-06] VITALS: Ht 172.7 cm; Wt 113.4 kg
[~2018-01-06 12:17] MED LIST changes: +MOTRIN800 MG PO
[2018-01-06 14:11] VITALS: BP 124/77
== END 2018-01-06 14:12 | disposition home or self-care (01) ==
LOC: EME 12:17
DX: N91.2 Amenorrhea, unspecified (principal); Z91.02 Food additives allergy status
CPT/HCPCS: 84702; 99281; 99283

== ENCOUNTER 2018-01-29 16:58 | Emergency (ER) | payer OTHER ==
[~2018-01-29] VITALS: Ht 170.2 cm; Wt 112.2 kg
[2018-01-29 17:45] LABS: HEMATOCRIT 37.3 % (36.0-46.0); HEMOGLOBIN 13.1 G/DL (11.9-15.5); MCH 28.6 PG (29.0-34.0); MCHC 35.1 G/DL (30.0-36.0); MCV 81.4 FL (83-99); PLATELET COUNT 196 K/uL (156-360); RBC DIS.WIDTH-CV 12.5 % (11.8-14.6); RBC DIS.WIDTH-SD 36.9 % (39-53); RED BLOOD COUNT 4.58 M/uL (3.80-5.20); WHITE BLOOD COUNT 5.8 K/uL (4.1-10.2)
[2018-01-29 17:54] LABS: ALBUMIN 4.1 g/dL (3.2-4.8)
[2018-01-29 17:55] LABS: CHLORIDE 108 mEq/L (99-109); POTASSIUM 3.7 mEq/L (3.7-5.4); SODIUM 139 mEq/L (136-147)
[2018-01-29 17:57] LABS: GLUCOSE 119 mg/dL (70-99); TOTAL PROTEIN 7.1 g/dL (6.4-8.3)
[2018-01-29 17:59] LABS: TOTAL BILIRUBIN 0.3 mg/dL (0.0-1.0)
[2018-01-29 18:00] LABS: ALKALINE PHOSPHATASE 55 IU/L (3-129)
[2018-01-29 18:01] LABS: CREATININE 0.8 mg/dL (0.6-1.3); GFR ESTIMATE (CALCULATED) > 59 mL/min/
[2018-01-29 18:02] LABS: AST (GOT) 10 IU/L (2-34); UREA NITROGEN (BUN) 10 mg/dL (9-23)
[2018-01-29 18:03] LABS: ALT (GPT) 9 IU/L (3-49)
[2018-01-29 18:04] LABS: LIPASE 19 U/L (1.0-51.0)
[2018-01-29 18:08] LABS: APPEARANCE SL.HAZY ((CLEAR)); BILIRUBIN NEGATIVE; BLOOD MODERATE; COLOR YELLOW ((YELLOW)); GLUCOSE (STRIP) NEGATIVE; KETONES NEGATIVE; LEUKOCYTES TRACE; NITRITE NEGATIVE; PROTEIN (STRIP) NEGATIVE; SPECIFIC GRAVITY 1.014 (1.000-1.030); UROBILINOGEN 0.2 MG/DL (0.2-1.0)
[2018-01-29 18:09] LABS: QUANTITATIVE HCG < 4.0 MIU/ML
[2018-01-29 18:16] LABS: BACTERIA NONE SEEN /HPF; EPITHELIAL CELLS RARE /HPF; MUCUS TRACE /LPF; RED BLOOD CELLS 0-5 /HPF (0-5); UCUL ADDED? NO; WHITE BLOOD CELLS 0-5 /HPF (0-5)
[2018-01-29 20:13] VITALS: BP 118/80
== END 2018-01-29 20:15 | disposition home or self-care (01) ==
LOC: EME 16:58
PROVIDERS: Physician Assistant
DX: N92.6 Irregular menstruation, unspecified (principal); F31.9 Bipolar disorder, unspecified; F90.9 Attention-deficit hyperactivity disorder, unspecified type
CPT/HCPCS: 76856; 80053; 81003; 83690; 84702; 85027; 99281; 99284